=== PATIENT | male | born 1960 | race Caucasian/White ===

== ENCOUNTER → 2017-11-26 | Outpatient (CLI) | payer OTHER ==
[~2017-11-26] MED LIST: ALEVE220 MG PO; ASPIRIN81 M2 PO; CENTRUM SILVER1 EAC2 PO; GLUCOSAMINE HC500 MG PO; GLYBURIDE 2.52.5 M1 PO; LIPITOR 20 MG T20 M1 PO; QUINAPRIL 20 MG20 MG PO; VICTOZA0.6 MG/0.1 SUBQ; VITAMINC500 PO
--- NOTE | ~2017-11-26 | EKG ---
[address] [place] [address] ELECTROCARDIOGRAM REPORT Name: EUSEBIA ORNELAS Room #: REG GLEN Dudley#: [id number] Admission: 11/26/17 Attend Phys: Kota Mcguire MD Discharge: Date of : 56 Report #: [id number] THIS REPORT FOR: //name// [facility] Test Date: 2017-11-26 Test Time: 06:41:56 Pat Name: EUSEBIA ORNELAS Department: Room: Gender: [employer]: JUNIOR : 1960 Requested By: Kota Mcguire Order Number: [id number] MD: Konstantin Louise Measurements Intervals [place] Rate: 78 P: 54 IN: 186 QRS: 20 QRSD: 104 T: 17 QT: 384 QTc: 438 Interpretive Statements Sinus rhythm Baseline wander in lead(s) V3 No previous ECG available for comparison Electronically Signed On 11-26-2017 8:49:28 CDT by Konstantin Louise [email or web address] <ELECTRONICALLY SIGNED> By: Konstantin Louise MD, [facility] 11/26/17 [id number] [id number] Konstantin Louise MD, FACC /EPI
== END | disposition home or self-care (01) ==
LOC: LITH 06:16
DX: N20.0 Calculus of kidney (principal); I10 Essential (primary) hypertension; E78.00 Pure hypercholesterolemia, unspecified; E11.9 Type 2 diabetes mellitus without complications; G47.33 Obstructive sleep apnea (adult) (pediatric); N28.9 Disorder of kidney and ureter, unspecified; Z85.828 Personal history of other malignant neoplasm of skin; Z80.42 Family history of malignant neoplasm of prostate; Z98.890 Other specified postprocedural states; Z79.899 Other long term (current) drug therapy